=== PATIENT | female | born 1990 | race Caucasian/White ===

== ENCOUNTER 2017-12-25 15:27 | Emergency (ER) | payer OTHER ==
[2017-12-25 15:46] VITALS: BP 118/72; PULSE 80
[2017-12-25 16:00] VITALS: RESP 18; TEMP 98.7
--- NOTE | 2017-12-25 16:02 | PD ---
HPI Chief Complaint Possible SROM Date Seen: Dec 25, 2017 Travel History International Travel<30 Days: No Contact w/Intl Traveler<30Days: No Known Affected Area: No History of Present Illness HPI The patient is a pleasant 27 year old at 36/1 weeks gestation presents to OB triage due to possible SROM. She reports leakage of fluid since this past Saturday. She states she has had trickling of fluid several times daily since then. She endorses irregular contractions. Endorses +FM. She otherwise denies fevers, headaches, changes in vision. She states her current has been uncomplicated. Para: 1 : 2 History Past Medical History Medical History: Denies Significant Hx Obstetric History Obstetric History One previous at term Past Surgical History Surgical History: No Previous Surgery Family History Family History: Negative Social History Alcohol Use: No Tobacco Use: No Substance Abuse: No Allergies-Medications (Allergen,Severity, Reaction): Coded Allergies: No Known Allergies (Unverified , 12/25/17) Review of Systems Except as stated in HPI: all other systems reviewed are Neg Physical Exam Narrative GENERAL: Well-nourished, well-developed patient. SKIN: Warm and dry. HEAD: Normocephalic and atraumatic. EYES: No scleral icterus. No injection or drainage. ENT: No nasal drainage noted. Mucous membranes pink. Airway patent. NECK: Supple, trachea midline. No JVD. CARDIOVASCULAR: Regular rate and rhythm without murmurs, gallops, or rubs. RESPIRATORY: Breath sounds equal bilaterally. No accessory muscle use. ABDOMEN/GI: Abdomen soft, non-tender, bowel sounds present, no rebound, no guarding Gravid to 36 weeks size GENITOURINARY: External Genitalia: intact and normal in appearance Cervix: posterior Dilatation: closed Effacement: [-] Station: -2 Presentation: vertex Membranes: intact Uterine Contractions: none on tocometer FHT's: Category: I Baseline: 130s bpm Reactive: +accels Variability: moderate Decels: none noted EXTREMITIES: No cyanosis or edema. BACK: Nontender without obvious deformity. NEUROLOGICAL: Awake and alert. Motor and sensory grossly within normal limits. Normal speech. Data Data Vital Signs Reviewed: Yes Orders Orders Vital Signs (Adult) .ON ADMISSION (12/25/17 15:49) ^ Labor Status (12/25/17 15:49) ^ Non Stress Test (12/25/17 15:49) Pamg-1 Test .ONCE (12/25/17 15:49) MDM Medical Record Reviewed: Yes Plan 27 year old at 36/1 weeks gestation presents to OB triage due to possible SROM. 1. IUP - Amnisure negative - Cervix closed - Category I tracing - Labor precautions reviewed with patient - Continue routine follow up at [facility] Dr. Flores Diagnosis Diagnosis: Primary Impression: Additional Impression: 36 weeks gestation of Disposition: DISCHARGE HOME Condition: Stable Stevo James MD R2 Dec 25, 2017 16:02
== END 2017-12-25 16:24 | disposition home or self-care (01) ==
LOC: HOBED 15:27
DX: O26.893 Other specified pregnancy related conditions, third trimester (principal); Z3A.36 36 weeks gestation of pregnancy
CPT/HCPCS: 84112; 99284

== ENCOUNTER 2018-01-13 19:38 | Emergency (ER) | payer OTHER ==
--- NOTE | 2018-01-13 20:47 | PD ---
HPI Chief Complaint Blurry vision dizziness Date Seen: January 13, 2018 Time Seen: 20:40 Travel History International Travel<30 Days: No Contact w/Intl Traveler<30Days: No Known Affected Area: No History of Present Illness HPI 27-year-old white female at 38 weeks [facility], she presents complaining of blurry vision and dizziness earlier today. She denies flashing lights or sparkles in her eye vision denies abdominal pain contractions, bleeding, leakage, she states she does have a history of occasional migraine headache. NST is reactive she is not francoise at this time, her blood pressure is within normal limits she had no history of hypertension in this or the one before Weeks Gestation: 38 Para: 1 : 2 History Obstetric History Obstetric History 1 vaginal delivery Social History Alcohol Use: No Tobacco Use: No Substance Abuse: No Allergies-Medications (Allergen,Severity, Reaction): Coded Allergies: No Known Allergies (Unverified , 12/25/17) Review of Systems General / Constitutional: No: Fever, Weight Gain, Chills, Other Eyes: Blurred Vision, No: Diploplia, Visual changes, Pain, Photophobia HENT: No: Headaches, Vertigo, Lightheadedness Cardiovascular: No: Irregular Rhythm, Chest Pain or Discomfort, Palpitations, Tachycardia, Syncope, Varicosities, Edema, Cyanosis Respiratory: No: Cough, Short of Breath, Other Gastrointestinal: No: Nausea, Vomiting, Diarrhea Genitourinary: No: Decreased Urinary Output, Oliguria Musculoskeletal: No: Limited ROM, Weakness, Cramping, Edema, Pain Skin: No Rash, No Itching, No Dryness, No Lumps, No Change in Pigmentation, No Change in Nails, No Alopecia, No Lesions Neurologic: Dizziness, No: Weakness, Syncope, Focal Abnormalities, Coordination Problem, Headache, Slurred Speech, Seizures Psychiatric: No: Depression, Suicidal Ideations, Homicidal Ideation Endocrine: No: Heat Intolerance, Cold Intolerance, Polydipsia, Polyuria, Other Physical Exam Narrative GENERAL: Well-nourished, well-developed patient. SKIN: Warm and dry. HEAD: Normocephalic and atraumatic. EYES: No scleral icterus. No injection or drainage. ENT: No nasal drainage noted. Mucous membranes pink. Airway patent. NECK: Supple, trachea midline. No JVD. CARDIOVASCULAR: Regular rate and rhythm without murmurs, gallops, or rubs. RESPIRATORY: Breath sounds equal bilaterally. No accessory muscle use. BREASTS: Bilateral exam showed no masses , no retractions, no nipple discharge. ABDOMEN/GI: Abdomen soft, non-tender, bowel sounds present, no rebound, no guarding Gravid to [38-] weeks size Fundal Height: [38-] Membranes: [intact ] Uterine Contractions: [none-] FHT's: Category: [1-] Baseline: [133-] Reactive: [R-] Variability: [-mod] Decels: [none-] EXTREMITIES: No cyanosis or edema. BACK: Nontender without obvious deformity. No CVA tenderness. NEUROLOGICAL: Awake and alert. Motor and sensory grossly within normal limits. Five out of 5 muscle strength in all muscle groups. Normal speech. Data Data Labs Urine dip on OB ED is negative for protein or infection, did have moderate glucose but random blood sugar fingerstick is 80 MDM Interpretation(s) Patient is 27-year-old white female at 38 weeks presents with blurry vision and dizziness today. Her blood pressure is normal her urine is without protein. NST is reactive there are no contractions no abdominal pain. Patient may have had an atypical migraine or possibly just see some visual changes due to swelling in the retina. Plan Plan for patient to be at bedrest tonight and tomorrow as much as possible she is [facility] and she should follow-up with that visit and tell them about her findings today Diagnosis Diagnosis: Primary Impression: 38 weeks gestation of Additional Impressions: Blurred vision Dizziness Disposition: 01 DISCHARGE HOME Condition: Stable Humberto Thorne II, MD January 13, 2018 20:47
== END 2018-01-13 20:48 | disposition home or self-care (01) ==
LOC: HOBED 19:38
DX: O26.893 Other specified pregnancy related conditions, third trimester (principal); H53.8 Other visual disturbances; R42 Dizziness and giddiness; Z3A.38 38 weeks gestation of pregnancy
CPT/HCPCS: 59025

== ENCOUNTER 2018-01-14 15:18 | Inpatient (IN) | payer OTHER ==
[~2018-01-14] VITALS: Ht 167.6 cm; Wt 88.0 kg
[2018-01-14] VITALS (36 sets, daily range): BP systolic 96–148; BP diastolic 54–127; PULSE 60–114; RESP 18–20; TEMP 98.3; O2SAT 99–100
[2018-01-14] MEDS ORDERED: MEASLES, MUMPS, RUBELLA VACCINE 0.5 ML VIAL SQ ONE (16:00)
[2018-01-14] MEDS ORDERED: DIPHTH/TETANUS/ACEL PERTUSSIS (BOOSTER) 0.5 ML VIAL/PFS IM ONE (16:00)
[2018-01-14] MEDS ORDERED: LACTATED RINGER'S 1000 ML INJ 1,000 ML IV SCH (16:42)
[2018-01-14] MEDS ORDERED: LACTATED RINGER'S 1000 ML INJ 1,000 ML IV PRN (16:42)
[2018-01-14] MEDS ORDERED: OXYTOCIN 30 UNITS-500ML PREMIX 500 ML IV ONE (16:45)
[2018-01-14] MEDS ORDERED: MINERAL OIL 10 ML VIAL TOPICAL PRN (16:45)
[2018-01-14] MEDS ORDERED: LIDOCAINE HCL 1% 50 ML VIAL INFIL PRN (16:45)
[2018-01-14] MEDS ORDERED: CITRIC ACID-SODIUM CITRATE LIQ 30 ML UDC PO SCH (16:45)
[2018-01-14] MEDS ORDERED: LIDOCAINE HCL 1% 50 ML VIAL I-DERMAL PRN (16:45)
[2018-01-14] MEDS ORDERED: SODIUM CHLORID 0.9% 500 ML INJ 500 ML IV PRN (16:45)
--- NOTE | 2018-01-14 16:50 | PD ---
HPI Chief Complaint Admit for low THERON Date Seen: January 14, 2018 Travel History International Travel<30 Days: No Contact w/Intl Traveler<30Days: No Known Affected Area: No History of Present Illness HPI The patient is a pleasant 27 year old at 39 weeks gestation admitted to L& D after being found to have low THERON and cervix at 4cm dilated earlier today in office. She does not have any other specific concerns or complaints. She denies leakage of fluid. Endorses irregular contractions. Reports + movements. She reports her has been uncomplicated thus far. Para: 1 : 2 History Past Medical History Medical History: Denies Significant Hx Obstetric History Obstetric History One prior term vaginal delivery, uncomplicated course and delivery Past Surgical History Surgical History: No Previous Surgery Family History Family History: Negative Social History Alcohol Use: No Tobacco Use: No Substance Abuse: No Allergies-Medications (Allergen,Severity, Reaction): Coded Allergies: No Known Allergies (Unverified , 12/25/17) Review of Systems Except as stated in HPI: all other systems reviewed are Neg Physical Exam Narrative GENERAL: Well-nourished, well-developed patient. SKIN: Warm and dry. HEAD: Normocephalic and atraumatic. EYES: No scleral icterus. No injection or drainage. ENT: No nasal drainage noted. Mucous membranes pink. Airway patent. NECK: Supple, trachea midline. No JVD. CARDIOVASCULAR: Regular rate and rhythm without murmurs, gallops, or rubs. RESPIRATORY: Breath sounds equal bilaterally. No accessory muscle use. ABDOMEN/GI: Abdomen soft, non-tender, bowel sounds present, no rebound, no guarding Gravid to 39 weeks size GENITOURINARY: External Genitalia: intact and normal in appearance Cervix: posterior Dilatation: 4cm Effacement: 50% Station: -2 Presentation: vertex Membranes: ruptured Uterine Contractions: q3-5 minutes FHT's: Category: I Baseline: 130s Reactive: +accels Variability: moderate Decels: none noted EXTREMITIES: No cyanosis or edema. BACK: Nontender without obvious deformity. No CVA tenderness. NEUROLOGICAL: Awake and alert. Motor and sensory grossly within normal limits. Normal speech. Data Data Vital Signs Reviewed: Yes Orders Orders Admit To Inpatient (01/14/18 ) Code Status (01/14/18 16:42) Vital Signs (Adult) .Per protocol (01/14/18 16:42) Activity Oob Ad Sweta (01/14/18 16:42) Heart (01/14/18 16:42) Amnioinfusion (01/14/18 16:42) Urinary Catheter Management .ONCE (01/14/18 16:42) Diet Liquid (01/14/18 Dinner) Lactated Ringer's 1000 Ml Inj (Lr 1000 M (01/14/18 16:42) Lactated Ringer's 1000 Ml Inj (Lr 1000 M (01/14/18 16:42) Sodium Chlorid 0.9% 500 Ml Inj (Ns 500 M (01/14/18 16:45) Sodium Chlor 0.9% 1000 Ml Inj (Ns 1000 M (01/14/18 17:02) Lidocaine 1% Inj (50 Ml) (Xylocaine 1% I (01/14/18 16:45) Citric Acid-Sodium Citrate Liq (Bicitra (01/14/18 16:45) Fentanyl Inj (Fentanyl Inj) (01/14/18 16:45) Fentanyl Inj (Fentanyl Inj) (01/14/18 16:45) Complete Blood Count With Diff (01/14/18 16:42) Hold Clot (01/14/18 16:42) Abo/Rh Blood Type (01/14/18 16:42) Urinalysis - C+S If Indicated (01/14/18 16:42) Ob/Psych Drug Screen, Urine (01/14/18 16:42) Resp Oxygen Non Rebreathe Mask (01/14/18 ) ^ Epidural / Intrathecal Infus (01/14/18 16:42) Oxytocin 30 Units-500ml Premix (Pitocin (01/14/18 16:45) Lidocaine 1% Inj (50 Ml) (Xylocaine 1% I (01/14/18 16:45) Light Mineral Oil (Muri-Lube Oil) (01/14/18 16:45) Inpatient Certification (01/14/18 ) Specimen To Be Collected PRN (01/14/18 16:42) [facility] Medical Record Reviewed: Yes Plan 27 year old at 39 weeks gestation admitted to L&D for induction of labor due to low THERON and with cervix at 4cm dilated earlier today in office. 1. IUP - Category I tracing - Contractions q3-5 minutes on tocometer - Cervix: 4/50/-2, s/p AROM with clear fluids - GBS negative - Patient desiring epidural - Start pitocin per protocol if contractions are inadequate - Continue expectant management Stevo Lima Dr., MD R2 January 14, 2018 16:50
[2018-01-14] MEDS ORDERED: SODIUM CHLOR 0.9% 1000 ML INJ 1,000 ML IV PRN (17:02)
--- NOTE | 2018-01-14 17:07 | HHI.HP ---
History & Physical H&P HPI HPI Chief Complaint Admit for low THERON Date Seen: January 14, 2018 Travel History International Travel<30 Days: No Contact w/Intl Traveler<30Days: No Known Affected Area: No History of Present Illness HPI The patient is a pleasant 27 year old at 39 weeks gestation admitted to L& D after being found to have low THERON and cervix at 4cm dilated earlier today in office. She does not have any other specific concerns or complaints. She denies leakage of fluid. Endorses irregular contractions. Reports + movements. She reports her has been uncomplicated thus far. Para: 1 : 2 History (Limited) History Past Medical History Medical History: Denies Significant Hx Obstetric History Obstetric History One prior term vaginal delivery, uncomplicated course and delivery Past Surgical History Surgical History: No Previous Surgery Family History Family History: Negative Social History Alcohol Use: No Tobacco Use: No Substance Abuse: No Allergies-Medications Allergies-Medications (Allergen,Severity, Reaction): Coded Allergies: No Known Allergies (Unverified , 12/25/17) ROS Review of Systems Except as stated in HPI: all other systems reviewed are Neg Physical Exam Physical Exam Narrative GENERAL: Well-nourished, well-developed patient. SKIN: Warm and dry. HEAD: Normocephalic and atraumatic. EYES: No scleral icterus. No injection or drainage. ENT: No nasal drainage noted. Mucous membranes pink. Airway patent. NECK: Supple, trachea midline. No JVD. CARDIOVASCULAR: Regular rate and rhythm without murmurs, gallops, or rubs. RESPIRATORY: Breath sounds equal bilaterally. No accessory muscle use. ABDOMEN/GI: Abdomen soft, non-tender, bowel sounds present, no rebound, no guarding Gravid to 39 weeks size GENITOURINARY: External Genitalia: intact and normal in appearance Cervix: posterior Dilatation: 4cm Effacement: 50% Station: -2 Presentation: vertex Membranes: ruptured Uterine Contractions: q3-5 minutes FHT's: Category: I Baseline: 130s Reactive: +accels Variability: moderate Decels: none noted EXTREMITIES: No cyanosis or edema. BACK: Nontender without obvious deformity. No CVA tenderness. NEUROLOGICAL: Awake and alert. Motor and sensory grossly within normal limits. Normal speech. Data Data Data Vital Signs Reviewed: Yes Orders Orders Admit To Inpatient (01/14/18 ) Code Status (01/14/18 16:42) Vital Signs (Adult) .Per protocol (01/14/18 16:42) Activity Oob Ad Sweta (01/14/18 16:42) Heart (01/14/18 16:42) Amnioinfusion (01/14/18 16:42) Urinary Catheter Management .ONCE (01/14/18 16:42) Diet Liquid (01/14/18 Dinner) Lactated Ringer's 1000 Ml Inj (Lr 1000 M (01/14/18 16:42) Lactated Ringer's 1000 Ml Inj (Lr 1000 M (01/14/18 16:42) Sodium Chlorid 0.9% 500 Ml Inj (Ns 500 M (01/14/18 16:45) Sodium Chlor 0.9% 1000 Ml Inj (Ns 1000 M (01/14/18 17:02) Lidocaine 1% Inj (50 Ml) (Xylocaine 1% I (01/14/18 16:45) Citric Acid-Sodium Citrate Liq (Bicitra (01/14/18 16:45) Fentanyl Inj (Fentanyl Inj) (01/14/18 16:45) Fentanyl Inj (Fentanyl Inj) (01/14/18 16:45) Complete Blood Count With Diff (01/14/18 16:42) Hold Clot (01/14/18 16:42) Abo/Rh Blood Type (01/14/18 16:42) Urinalysis - C+S If Indicated (01/14/18 16:42) Ob/Psych Drug Screen, Urine (01/14/18 16:42) Resp Oxygen Non Rebreathe Mask (01/14/18 ) ^ Epidural / Intrathecal Infus (01/14/18 16:42) Oxytocin 30 Units-500ml Premix (Pitocin (01/14/18 16:45) Lidocaine 1% Inj (50 Ml) (Xylocaine 1% I (01/14/18 16:45) Light Mineral Oil (Muri-Lube Oil) (01/14/18 16:45) Inpatient Certification (01/14/18 ) Specimen To Be Collected PRN (01/14/18 16:42) MDM MDM Medical Record Reviewed: Yes Plan 27 year old at 39 weeks gestation admitted to L&D for induction of labor due to low THERON and with cervix at 4cm dilated earlier today in office. 1. IUP - Category I tracing - Contractions q3-5 minutes on tocometer - Cervix: 4/50/-2, s/p AROM with clear fluids - GBS negative - Patient desiring epidural - Start pitocin per protocol if contractions are inadequate - Continue expectant management ronyw Stevo Castro MD R2 January 14, 2018 17:07
[2018-01-14 17:46] LABS: AUTOMATED NEUTROPHIL # 9.2 TH/MM3 (1.8-7.7); BASOPHIL % 0.3 % (0.0-2.0); EOSINOPHIL # 0.4 TH/MM3 (0-0.4); EOSINOPHIL % 3.1 % (0.0-4.0); HEMATOCRIT 36.4 % (35.0-46.0); LYMPH % 13.5 % (9.0-44.0); LYMPHOCYTE # 1.6 TH/MM3 (1.0-4.8); MEAN CELL VOLUME 86.6 FL (80.0-100.0); MEAN CORPUSCULAR HEMOGLOBIN 28.6 PG (27.0-34.0); MEAN PLATELET VOLUME 7.8 FL (7.0-11.0); MONO % 5.8 % (0.0-8.0); MONOCYTE # 0.7 TH/MM3 (0-0.9); NEUT % 77.3 % (16.0-70.0); PLATELET COUNT 287 TH/MM3 (150-450); RED BLOOD COUNT 4.21 MIL/MM3 (4.00-5.30); WHITE BLOOD COUNT 11.8 TH/MM3 (4.0-11.0)
[2018-01-14] MEDS ORDERED: OXYTOCIN 30 UNITS-500ML PREMIX 500 ML IV PRN (18:00)
[2018-01-14 18:26] LABS: BACTERIA, URINE RARE /hpf; BILIRUBIN, URINE NEG (NEG); BLOOD, URINE NEG (NEG); GLUCOSE,URINE NEG (NEG); KETONE, URINE NEG (NEG); NITRITE,URINE NEG (NEG); SQUAMOUS EPITHELIAL CELL URINE 2 /hpf (0-5); URINE COLOR LIGHT-YELLOW (YELLW/STRAW); URINE LEUKOCYTE ESTERASE TRACE (NEG)
[2018-01-14] MEDS ORDERED: fentaNYL 2MCG-BUPIV 0.125% INJ 100 ML ONE (20:52)
[2018-01-14] MEDS ORDERED: LIDOCAINE 2%/EPINEPHrine PF 1:200,000 20ML SDV ONE (21:14)
[2018-01-14] MEDS ORDERED: DO NOT ADMINISTER ANTICOAGULANTS PRN (22:15)
[2018-01-14] MEDS ORDERED: NO SYSTEM NARCOTICS PRN (22:15)
[2018-01-14] MEDS ORDERED: ePHEDrine/NS 25 MG/5 ML SYRINGE IV PUSH PRN (22:15)
[2018-01-14] MEDS ORDERED: fentaNYL 2MCG-BUPIV 0.125% 100 ML EPIDURAL PRN (22:15)
[2018-01-14] MEDS ORDERED: ceFAZolin 2 GM PREMIX 50 ML IV STA (23:13)
--- NOTE | 2018-01-14 23:13 | PD.OB.DELI ---
Weeks gestation: 39 Active labor start date: January 14, 2018 Active labor start time: 19:00 Medical induction of labor?: Yes Artificial rupture of membrane: Yes Artificial ROM date: January 14, 2018 Anesthesia: Epidural Episiotomy: None Vaginal Delivery: Normal, Spontaneous Presentation: Compound (Delivery of left hand with head) Nuchal Cord: None Delayed cord clamping (45 sec): Yes : Male Delivery date: January 14, 2018 Delivery time: 10:48 One Minute : 8 Five Minute : 8 Weight: 3235gm Placenta: Spontaneous delivery, Intact, 3 vessel cord Laceration: Perineal laceration, 3 deg, Involving anal sphincter (Sphincter was identified bilaterally and pulled interior into the field using davian clamps. 2-0 Chronic sutures were used in an interrupted fashion circumferentially to bring the ends together without tension. Rectal exam reveals no suture or tears into the rectum.) Repair: Chromic interrupted Estimated blood loss: 300 Alejandra Phan MD January 14, 2018 23:13
[2018-01-14] MEDS ORDERED: OXYTOCIN 30 UNITS-500ML PREMIX 500 ML IV SCH (23:15)
[2018-01-14] MEDS ORDERED: SODIUM CHLORIDE 0.9% FLUSH 10 ML FLUSH IV FLUSH PRN (23:15)
[2018-01-14] MEDS ORDERED: ONDANSETRON ODT 4 MG TAB PO PRN (23:15)
[2018-01-14] MEDS ORDERED: BENZOCAINE 20% TOPICAL SPRAY 60 ML CAN TOPICAL PRN (23:15)
[2018-01-14] MEDS ORDERED: ALUMINUM/MAGNESIUM/SIMETH 30 ML CUP PO PRN (23:15)
[2018-01-15] VITALS: BP 121/91; RESP 16
[2018-01-15 00:45] VITALS: BP 114/67; PULSE 63; RESP 18; TEMP 97.6
[2018-01-15] MEDS: WITCH HAZEL 50%/GLYCERIN 12.5% 40 PAD JAR TOPICAL PRN ×2 (01:01→21:21)
[2018-01-15 01:30] VITALS: BP 108/64; PULSE 66; RESP 18; TEMP 98; O2SAT 97
[2018-01-15] MEDS: DOCUSATE SODIUM 50 MG/SENNA 8.6 MG TAB PO SCH ×2 (02:26→11:45)
[2018-01-15] MEDS: IBUPROFEN 800 MG TAB PO PRN ×3 (02:27→21:17)
[2018-01-15 07:30] VITALS: BP 89/60; PULSE 74; RESP 18; TEMP 97.9
--- NOTE | 2018-01-15 08:31 | HHI.OB ---
Subjective Post Day: 1 Remarks Patient seen and examined this morning. AFVSS overnight. day #1. Patient states her pain is well controlled. Decreased lochia. Denies dysuria. No breast tenderness. She is feeding the baby via breast. Appetite good. No nausea or vomiting. Ambulating well without issues. Denies fevers or chills, calf pain, shortness of breath, or cough. She otherwise has no other complaints or concerns this morning. Objective Vitals/I&O Vital Signs Date Time Temp Pulse Resp B/P (MAP) Pulse Ox O2 Delivery O2 Flow Rate FiO2 01/15/18 01:30 98.0 66 18 108/64 (79) 97 01/15/18 00:45 114/67 (83) 01/15/18 00:45 97.6 63 18 01/15/18 00:00 16 01/15/18 00:00 121/91 (101) 01/14/18 23:46 72 110/54 (72) 01/14/18 23:31 100 114/63 (80) 01/14/18 23:18 77 113/71 (85) 01/14/18 23:17 114 148/127 (134) 01/14/18 23:00 72 121/60 (80) 01/14/18 22:45 18 01/14/18 22:35 100 01/14/18 22:35 79 01/14/18 22:30 88 01/14/18 22:30 84 119/72 (88) 100 01/14/18 22:25 83 108/76 (87) 100 01/14/18 22:20 72 111/63 (79) 100 01/14/18 22:15 68 110/60 (77) 100 01/14/18 22:10 80 109/62 (78) 99 01/14/18 22:05 71 109/66 (80) 100 01/14/18 22:00 71 117/68 (84) 100 01/14/18 21:55 68 105/69 (81) 100 01/14/18 21:50 72 109/62 (78) 99 01/14/18 21:45 73 115/84 (94) 100 01/14/18 21:40 70 109/60 (76) 100 01/14/18 21:35 68 113/56 (75) 100 01/14/18 21:33 20 01/14/18 21:32 72 112/61 (78) 01/14/18 21:31 68 113/62 (79) 01/14/18 21:28 83 96/82 (87) 01/14/18 21:27 69 118/60 (79) 01/14/18 21:25 94 121/77 (92) 01/14/18 21:24 75 119/66 (83) 01/14/18 21:22 73 120/63 (82) 01/14/18 21:20 81 01/14/18 21:15 74 01/14/18 21:10 60 01/14/18 21:05 79 107/87 (94) 01/14/18 21:00 16 01/14/18 20:11 68 118/60 (79) 01/14/18 20:07 18 01/14/18 19:28 70 113/71 (85) 01/14/18 18:00 98.3 01/14/18 18:00 20 01/14/18 17:04 70 118/71 (87) Objective Remarks GENERAL: Well-nourished, well-developed patient. CARDIOVASCULAR: Regular rate and rhythm without murmurs, gallops, or rubs. RESPIRATORY: Breath sounds equal bilaterally. No accessory muscle use. ABDOMEN/GI: Abdomen soft, non-tender. Fundus: Firm, non-tender at umbilicus. GENITOURINARY: Light to moderate bleeding. EXTREMITIES: No cyanosis or edema, non-tender, without signs of DVT. Medications and IVs Current Medications Medications (Trade) Dose Ordered Sig/Avani Route Start Time Stop Time Status Last Admin Lactated Ringer's 1,000 ml @ 125 mls/hr Q8H IV 01/14/18 16:42 01/14/18 22:00 Lactated Ringer's 1,000 ml @ 3,000 mls/hr Q20M PRN IV 01/14/18 16:42 Sodium Chloride 500 ml @ 1,000 mls/hr ONCE PRN IV 01/14/18 16:45 01/21/18 16:44 Sodium Chloride 1,000 ml @ 100 mls/hr Q10H PRN IV 01/14/18 17:02 (Xylocaine 1% Inj (50 ml)) 0.1 ml UNSCH X1 PRN I-DERMAL 5/15/18 16:45 01/17/18 16:44 (Bicitra Liq) 30 ml COOK SYRUP MAKER PO 01/14/18 16:45 01/18/18 16:44 (fentaNYL INJ) 50 mcg Q1H PRN IV PUSH 01/14/18 16:45 (fentaNYL INJ) 100 mcg Q1H PRN IV PUSH 01/14/18 16:45 01/14/18 20:05 (Xylocaine 1% Inj (50 ml)) 10 ml UNSCH X1 PRN INFIL 01/14/18 16:45 01/16/18 16:44 (Muri-Lube Oil) 10 ml UNSCH PRN TOPICAL 01/14/18 16:45 Oxytocin 500 ml @ 0 mls/hr TITRATE PRN IV 01/14/18 18:00 ([facility] [place] [facility] No systemic narcotics to be given except... UNSCH PRN .XX 01/14/18 22:15 01/15/18 22:14 [place] [place] [facility] [place] DO NOT ADMINISTER ANY ANTICOAGUL... UNSCH PRN .XX 01/14/18 22:15 01/15/18 22:14 Fentanyl/ Bupivacaine HCl 100 ml @ 0 mls/hr TITRATE PRN EPIDURAL 01/14/18 22:15 (ePHEDrine/NS 25 MG/5 ML SYR) 10 mg UNSCH PRN IV PUSH 01/14/18 22:15 01/15/18 22:14 (NS Flush) 2 ml BID IV FLUSH 01/15/18 09:00 01/15/18 02:27 (NS Flush) 2 ml UNSCH PRN IV FLUSH 01/14/18 23:15 01/15/18 03:35 (Tylenol) 650 mg Q4H PRN PO 01/14/18 23:15 (Motrin) 800 mg Q8H PRN PO 01/14/18 23:15 01/15/18 02:27 (Americaine 20% Top Spr) 1 spray Q4H PRN TOPICAL 01/14/18 23:15 01/15/18 01:01 (Tucks Pads) 1 applic QID PRN TOPICAL 01/14/18 23:15 01/15/18 01:01 (Cintia-Colace) 2 tab Q12H PO 5/15/18 23:15 01/15/18 02:26 (Mag-Al Plus Susp Liq) 15 ml Q8H PRN PO 01/14/18 23:15 (Zofran Odt) 4 mg Q6H PRN PO 01/14/18 23:15 01/15/18 01:01 Assessment/Plan Problem List: (1) care following vaginal delivery ICD Codes: Z39.2 - Encounter for routine follow-up Assessment and Plan 27 year old now PPD#1. 1. Care - AFVSS - Encouraged OOB, as tolerated - Motrin or Percocet prn pain - Advised pelvic rest x 6 weeks - without reported issues - Contraception: Discussed with patient this morning, patient is still considering her options - Will f/u with OB provider in 6 weeks [facility]dw OB Hospitalist Discharge Planning Anticipate discharge tomorrow pending stable clinical course Stevo James MD R2 January 15, 2018 08:31
[2018-01-15] MEDS ORDERED: SODIUM CHLORIDE 0.9% FLUSH 10 ML FLUSH IV FLUSH SCH (09:00)
[2018-01-15] MEDS: ACETAMINOPHEN 325 MG TAB PO PRN ×2 (11:45→21:17)
[2018-01-15 20:00] VITALS: BP 117/78; PULSE 64; RESP 18; TEMP 97.9
[2018-01-16] MEDS: DOCUSATE SODIUM 50 MG/SENNA 8.6 MG TAB PO SCH (09:14)
[2018-01-16] MEDS: IBUPROFEN 800 MG TAB PO PRN (09:14)
[2018-01-16] MEDS: ACETAMINOPHEN 325 MG TAB PO PRN (09:14)
--- NOTE | 2018-01-16 09:40 | HHI.OB ---
Subjective Post Day: 2 Remarks Patient seen and examined this morning. AFVSS overnight. day #2. Pain well-controlled. Decreased lochia. Denies dysuria. No breast tenderness. Appetite good. No nausea or vomiting. Positive flatus. Positive bowel movement. Ambulating well. Denies calf pain, shortness of breath, or cough. She otherwise has no other complaints or concerns this morning. Objective Vitals/I&O Vital Signs Date Time Temp Pulse Resp B/P (MAP) Pulse Ox O2 Delivery O2 Flow Rate FiO2 01/15/18 20:00 64 18 117/78 (91) 01/15/18 20:00 97.9 Objective Remarks GENERAL: Well-nourished, well-developed patient. CARDIOVASCULAR: Regular rate and rhythm without murmurs, gallops, or rubs. RESPIRATORY: Breath sounds equal bilaterally. No accessory muscle use. ABDOMEN/GI: Abdomen soft, non-tender. Fundus: Firm, non-tender at umbilicus. GENITOURINARY: Light to moderate bleeding. EXTREMITIES: No cyanosis or edema, non-tender, without signs of DVT. Medications and IVs Current Medications Medications (Trade) Dose Ordered Sig/Avani Route Start Time Stop Time Status Last Admin Lactated Ringer's 1,000 ml @ 125 mls/hr Q8H IV 01/14/18 16:42 01/14/18 22:00 Lactated Ringer's 1,000 ml @ 3,000 mls/hr Q20M PRN IV 01/14/18 16:42 Sodium Chloride 500 ml @ 1,000 mls/hr ONCE PRN IV 01/14/18 16:45 01/21/18 16:44 Sodium Chloride 1,000 ml @ 100 mls/hr Q10H PRN IV 01/14/18 17:02 (Xylocaine 1% Inj (50 ml)) 0.1 ml UNSCH X1 PRN I-DERMAL 01/14/18 16:45 01/17/18 16:44 (Bicitra Liq) 30 ml ANALYTICAL CHEMIST PO 01/14/18 16:45 01/18/18 16:44 (fentaNYL INJ) 50 mcg Q1H PRN IV PUSH 01/14/18 16:45 (fentaNYL INJ) 100 mcg Q1H PRN IV PUSH 01/14/18 16:45 5/15/18 20:05 (Xylocaine 1% Inj (50 ml)) 10 ml UNSCH X1 PRN INFIL 01/14/18 16:45 01/16/18 16:44 (Muri-Lube Oil) 10 ml UNSCH PRN TOPICAL 01/14/18 16:45 Oxytocin 500 ml @ 0 mls/hr TITRATE PRN IV 01/14/18 18:00 Fentanyl/ Bupivacaine HCl 100 ml @ 0 mls/hr TITRATE PRN EPIDURAL 01/14/18 22:15 (NS Flush) 2 ml BID IV FLUSH 01/15/18 09:00 01/15/18 02:27 (NS Flush) 2 ml UNSCH PRN IV FLUSH 01/14/18 23:15 01/15/18 03:35 (Tylenol) 650 mg Q4H PRN PO 01/14/18 23:15 01/16/18 09:14 (Motrin) 800 mg Q8H PRN PO 01/14/18 23:15 01/16/18 09:14 (Americaine 20% Top Spr) 1 spray Q4H PRN TOPICAL 01/14/18 23:15 01/15/18 01:01 (Tucks Pads) 1 applic QID PRN TOPICAL 01/14/18 23:15 01/15/18 21:21 (Cintia-Colace) 2 tab Q12H PO 01/14/18 23:15 01/16/18 09:14 (Mag-Al Plus Susp Liq) 15 ml Q8H PRN PO 01/14/18 23:15 (Zofran Odt) 4 mg Q6H PRN PO 01/14/18 23:15 01/15/18 01:01 Assessment/Plan Problem List: (1) care following vaginal delivery ICD Codes: Z39.2 - Encounter for routine follow-up Assessment and Plan 27 year old now PPD#2. 1. Care - AFVSS - Encouraged OOB, as tolerated - Motrin or Percocet prn pain - Advised pelvic rest x 6 weeks - without reported issues - Contraception: Discussed with patient this morning, patient is still considering her options - Will f/u with OB provider in 6 weeks wdw OB Hospitalist Discharge Planning Anticipate discharge today Kayleigh Beaulieu MD, R1 January 16, 2018 09:40
[2018-01-16] MEDS ORDERED: IBUP1TAB7 PO (09:41)
--- NOTE | 2018-01-16 09:42 | HHI.DCPOC ---
Discharge Care Plan Diagnosis: (1) 39 weeks gestation of (2) care following vaginal delivery Goals to Promote Your Health * To prevent worsening of your condition and complications * To maintain your health at the optimal level Directions to Meet Your Goals Take your medications as prescribed Follow your dietary instruction Follow activity as directed Keep your appointments as scheduled Take your immunizations and boosters as scheduled If your symptoms worsen call your PCP, if no PCP go to Urgent Care Center or Emergency Room Smoking is Dangerous to Your Health. Avoid second hand smoke Call the 24-hour hour crisis hotline for domestic abuse at Kayleigh Beaulieu MD, R1 January 16, 2018 09:42
== END 2018-01-16 13:05 | disposition home or self-care (01) | DRG 775 ==
LOC: H2EA 15:18 → H1EA 01-15 00:41
PROVIDERS: ADMIT Obstetrics & Gynecology Obstetrics; ATTEND Obstetrics & Gynecology Obstetrics
PROC: 10E0XZZ Delivery of Products of Conception, External Approach (ICD-10-PCS; principal; 2018-01-14)
PROC: 0DQR0ZZ Repair Anal Sphincter, Open Approach (ICD-10-PCS; 2018-01-14)
PROC: 10907ZC Drainage of Amniotic Fluid, Therapeutic from Products of Conception, Via Natural or Artificial Opening (ICD-10-PCS; 2018-01-14)
PROC: 3E033VJ Introduction of Other Hormone into Peripheral Vein, Percutaneous Approach (ICD-10-PCS; 2018-01-14)
DX: O32.6XX0 Maternal care for compound presentation, not applicable or unspecified (principal); O70.20 Third degree perineal laceration during delivery, unspecified; Z37.0 Single live birth; Z3A.39 39 weeks gestation of pregnancy
CPT/HCPCS: 59025; 80307; 81001; 85025; 86900; 86901; G0481; J0690; J2590; J3010; J7120